=== PATIENT | male | born 1955 | race Two or more races ===

== ENCOUNTER 2019-07-09 13:06 | Outpatient (CLI) | payer MEDICARE, OTHER ==
--- NOTE | 2019-07-09 15:13 | Diagnostic Imaging Report ---
Indication: Abdominal pain Technique: One view of the abdomen Comparison: none Findings: The transverse colon and splenic flexure are mildly distended with gas and demonstrate air-fluid levels on the upright exam. The remainder of the bowel is normal in caliber. There is left ureteral stent is in the expected position. Multiple calcifications project in the expected region of the lower pole of left kidney. No evidence of free intraperitoneal gas. Impression: Mildly distended gas and fluid-filled transverse colon and splenic flexure. Suspect functional in nature but downstream obstructive process possible. Consider CT for further evaluation Left nephroureteral stent in good position Possible left lower pole intrarenal calculi
== END 2019-07-09 15:08 | disposition home or self-care (01) ==
LOC: RAD 13:06
DX: C18.9 Malignant neoplasm of colon, unspecified (principal); R10.9 Unspecified abdominal pain; K59.00 Constipation, unspecified
CPT/HCPCS: 74019